=== PATIENT | male | born 1980 | race Caucasian/White ===

== ENCOUNTER → 2018-11-07 | Outpatient (CLI) | payer MEDICARE, OTHER ==
[~2018-11-07] MED LIST: ASPI-556 PO; BENA10TA12 PO; CARV12.530 PO; FURO80 PO; INSLAN SQ; INSU100C3 SQ; LOSA25TA41 PO; SIMV-261 PO
== END | disposition home or self-care (01) ==
LOC: RADPV 08:37
PROVIDERS: ATTEND Internal Medicine Cardiovascular Disease
DX: I12.0 Hypertensive chronic kidney disease with stage 5 chronic kidney disease or end stage renal disease (principal); E11.22 Type 2 diabetes mellitus with diabetic chronic kidney disease; N18.6 End stage renal disease; E11.65 Type 2 diabetes mellitus with hyperglycemia; Z79.4 Long term (current) use of insulin
CPT/HCPCS: 93306